=== PATIENT | female | born 1955 ===

== ENCOUNTER 2024-04-05 13:02 | Inpatient (IN) | payer OTHER ==
[~2024-04-05] VITALS: Ht 162.6 cm; Wt 86.2 kg
[2024-04-05] MEDS ORDERED: LIPITOR20 MG PO (13:52)
[2024-04-05] MEDS ORDERED: MIRTAZAPINE45 M1 PO (13:52)
[2024-04-05] MEDS ORDERED: COZAAR25 MG PO (13:52)
[2024-04-05] MEDS ORDERED: ZOLOFT50 MG PO (13:53)
[2024-04-05 13:55] VITALS: BP 160/76
[2024-04-19 06:37] LABS: INR 1.09; PARTIAL THROMBOPLASTIN TIME 27.4 SECONDS (22.0-34.0); PROTHROMBIN TIME 11.8 SECONDS (9.0-11.5)
[2024-04-19] MEDS ORDERED: CEFAZOLIN SODIUM 1,000 MG VIAL ONE ×2 (08:31→17:23)
[2024-04-19] MEDS ORDERED: PERCOCET 5-3251 EACH PO (09:37)
[2024-04-19] MEDS ORDERED: COLACE100 MG PO (09:38)
[2024-04-19] MEDS ORDERED: ZOFRAN8 MG PO (09:38)
[2024-04-19] MEDS ORDERED: MEDROLPACK PO (09:38)
[2024-04-19] MEDS ORDERED: METHYLPREDNISOLONE ACETATE 80 MG/ML VIAL ONE (09:54)
[2024-04-19] MEDS ORDERED: HEMOSTATIC MATRIX WITH THROMBIN KIT TOP ONE (09:55)
[2024-04-19] MEDS ORDERED: 0.9 % SODIUM CHLORIDE 1,000 ML IV SCH (10:00)
[2024-04-19] MEDS ORDERED: ENALAPRILAT DIHYDRATE 1.25 MG/ML VIAL IV PRN (10:00)
[2024-04-19] MEDS ORDERED: PROMETHAZINE HCL 50 MG/ML AMPUL IM PRN (10:00)
[2024-04-19] MEDS ORDERED: VANCOMYCIN HCL 1,000 MG VIAL IV ONE (11:45)
[2024-04-19] MEDS ORDERED: CEFAZOLIN SODIUM 1,000 MG VIAL IV ONE (11:45)
[2024-04-19] MEDS ORDERED: METHYLPREDNISOLONE SOD SUCC 125 MG VIAL IV ONE (12:00)
[2024-04-19] MEDS ORDERED: MORPHINE SULFATE 4 MG,MORPHINE SULFATE 2 MG IV SCH (13:00)
[2024-04-19] MEDS ORDERED: DOCUSATE SODIUM 100MG CAP PO SCH (13:00)
[2024-04-19] MEDS ORDERED: MORPHINE SULFATE 4 MG/ML VIAL IV ONE ×2 (13:10→13:40)
[2024-04-19] MEDS ORDERED: FAMOtidine 20 MG TABLET PO SCH (17:00)
[2024-04-19] MEDS ORDERED: CEFAZOLIN SODIUM 1,000 MG in 0.9 % SODIUM CHLORIDE 50 ML IV SCH (17:00)
[2024-04-19] MEDS ORDERED: METHYLPREDNISOLONE SOD SUCC 125 MG VIAL IV SCH (17:00)
[2024-04-19] MEDS ORDERED: METHYLPREDNISOLONE SOD SUCC 125 MG VIAL ONE (17:23)
[2024-04-19 19:00] VITALS: BP 160/76; O2SAT 97
[2024-04-19] MEDS ORDERED: VANCOMYCIN HCL 1,000 MG VIAL IV SCH (21:00)
[2024-04-19 22:49] VITALS: O2SAT 96
[2024-04-19] MEDS ORDERED: HALOPERIDOL LACTATE 5 MG/ML AMPUL IM STA (23:51)
[2024-04-19] MEDS ORDERED: DIPHENHYDRAMINE HCL 50 MG/ML VIAL 1ML IM STA (23:52)
[2024-04-19] MEDS ORDERED: LORazepam 2 MG/ML VIAL IM STA (23:52)
[2024-04-20] MEDS ORDERED: SODIUM CHLORIDE 0.45 % 1,000 ML IV SCH
[2024-04-20 00:23] VITALS: O2SAT 98
[2024-04-20 01:05] VITALS: BP 117/56; O2SAT 99
[2024-04-20 04:50] VITALS: O2SAT 96
[2024-04-20] MEDS ORDERED: OxyCODONE HCL/APAP UD (PERCOCET) PO PRN (06:01)
[2024-04-20 08:00] VITALS: BP 142/65; O2SAT 97
[2024-04-20] MEDS ORDERED: LOSARTAN POTASSIUM 25 MG TABLET PO SCH (09:00)
[2024-04-20] MEDS ORDERED: TAMSULOSIN HCL 0.4 MG CAP PO SCH (09:00)
[2024-04-20] MEDS ORDERED: ATORVASTATIN CALCIUM 20 MG TABLET PO SCH (09:00)
[2024-04-20] MEDS ORDERED: SERTRALINE HCL 50 MG TABLET PO SCH (09:00)
[2024-04-20 09:21] VITALS: O2SAT 99
== END 2024-04-20 11:42 | disposition home or self-care (01) | DRG 473 ==
LOC: O/R 04-19 06:00 → SURH 04-19 07:00 → EDSTATUS 04-19 07:00 → CIR.AMB 04-19 07:00 → SURH 04-19 13:15
PROVIDERS: ADMIT Orthopaedic Surgery Orthopaedic Surgery of the Spine; ATTEND Orthopaedic Surgery Orthopaedic Surgery of the Spine
PROC: 0RT30ZZ Resection of Cervical Vertebral Disc, Open Approach (ICD-10-PCS; 2024-04-19)
PROC: 0PB40ZZ Excision of Thoracic Vertebra, Open Approach (ICD-10-PCS; 2024-04-19)
PROC: 07DS0ZZ Extraction of Vertebral Bone Marrow, Open Approach (ICD-10-PCS; 2024-04-19)
PROC: 4A1104G Monitoring of Peripheral Nervous Electrical Activity, Intraoperative, Open Approach (ICD-10-PCS; 2024-04-19)
PROC: 4A12X4Z Monitoring of Cardiac Electrical Activity, External Approach (ICD-10-PCS; 2024-04-19)
PROC: 0RG20A0 Fusion of 2 or more Cervical Vertebral Joints with Interbody Fusion Device, Anterior Approach, Anterior Column, Open Approach (ICD-10-PCS; principal; 2024-04-19 07:00)
DX: M50.023 Cervical disc disorder at C6-C7 level with myelopathy (principal); M50.022 Cervical disc disorder at C5-C6 level with myelopathy; M50.021 Cervical disc disorder at C4-C5 level with myelopathy; I10 Essential (primary) hypertension